=== PATIENT | male | born 1990 | race African-American/Black ===

== ENCOUNTER 2017-05-31 08:02 | Emergency (ER) | payer OTHER ==
[~2017-05-31] VITALS: Ht 182.9 cm; Wt 79.4 kg
--- NOTE | 2017-05-31 08:35 | PHYS DOC ---
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 Pt states 4 days ago he was wearing "slides" accidentally stubbed toe on concrete parking lot divider. Has had pain/swelling since then. No numbness/ tingling/weakness radiating sx, pain adequately controlled with OTC. No other injury. Onset: last week Severity: moderate Pain/Injury Location: left 4th toe Method of Injury: direct blow Modifying Factors: worse with jarring, worse with movement, improves with rest Allergies: Coded Allergies: No Known Drug Allergies (Unverified , 05/31/17) Past Medical History Medical History: no pertinent history Surgical History: noncontributory Social History Smoker: non-smoker Alcohol: none Drugs: none Review of Systems Constitutional: denies chills, denies fever Respiratory: denies cough, denies shortness of breath Cardiovascular: denies chest pain, denies palpitations Gastrointestinal: denies nausea, denies vomiting Musculoskeletal: see HPI Skin: see HPI Psychiatric/Neurological: see HPI Physical Exam General Appearance: WD/WN, no apparent distress Neck: non-tender, supple Cardiovascular/Respiratory: normal peripheral pulses, no respiratory distress Back: no CVA tenderness, no vertebral tenderness Feet: left foot other (4th toe swollen/bruised, TTP at IP joint, appears to have to tendon damage, NV intact) Neurologic/Tendon: normal sensation, normal motor functions, normal tendon functions, responds to pain, no evidence tendon injury Psychiatric: alert, oriented x 3 Skin: warm/dry (toe bruising as above) Orders, Labs, Meds PATIENT: KIMBERLY SALAZAR ACCOUNT: [id number] : 1990 LOCATION: ER AGE: 26 SEX: M EXAM STATUS: REG ER ORD. PHYSICIAN: LEIDY GARCIA DO REASON: 4th toe trauma PROCEDURE: TOES LEFT Left fourth toe, 3 views, 05/31/2017: History: Toe injury There is a small fracture fragment located along the dorsal aspect of the PIP joint. This probably arises from the proximal aspect of the middle phalanx. No other fracture or dislocation is identified. IMPRESSION: Small cortical avulsion fracture arising from the dorsal aspect of the proximal end of the middle phalanx at the PIP joint. DICTATED AND SIGNED BY: MATTEO YOUNG MD DATE: 05/31/17827 CC: PHILL WHITFIELD DO; LEIDY GARCIA DO ~ Discussed treatment plan, pt refuses pain meds. NV intact after taped. Departure Time of Disposition: 08:41 Disposition: 01 HOME, SELF-CARE Diagnosis: Fracture left 4th toe middle phalanx Condition: GOOD Patient Instructions: Bo Taping of Toes, ABRAHAM - Routine Care for Injuries, [id number], Toe Fracture-Brief Additional Instructions: No PT or prolonged standing until cleared by your doctor, note given. ABRAHAM, see handout. Wear post-op shoe and bo tape (see handout). OTC tylenol/ibuprofen as needed for discomfort. Follow up on Post at [facility] this week for recheck. Take the disc of your images with you to that appointment. Return to ED with new or changing symptoms. LEIDY GARCIA DO May 31, 2017 08:35
[2017-05-31 08:55] VITALS: BP 128/71
== END 2017-05-31 08:55 | disposition home or self-care (01) ==
LOC: ER 08:02
DX: S92.522A Displaced fracture of middle phalanx of left lesser toe(s), initial encounter for closed fracture (principal); W22.8XXA Striking against or struck by other objects, initial encounter; Y93.89 Activity, other specified; Y99.8 Other external cause status; Y92.481 Parking lot as the place of occurrence of the external cause
CPT/HCPCS: 73660; 99284